=== PATIENT | male | born 1990 | race Caucasian/White ===

== ENCOUNTER 2017-11-30 21:31 | Emergency (ER) | payer OTHER ==
[~2017-11-30] VITALS: Ht 177.8 cm; Wt 77.1 kg
[2017-11-30 21:31] VITALS: BP 142/75
[2017-11-30] MEDS ORDERED: ACETAMINOPHEN 325 MG TABLET PO ONE (22:30)
[2017-11-30] MEDS ORDERED: CEFTRIAXONE 1 G VIAL IM ONE (22:30)
[2017-11-30] MEDS ORDERED: CEFTRIAXONE 1 G VIAL ONE (22:31)
[2017-11-30] MEDS ORDERED: ACETAMINOPHEN ES 500 MG TABLET ONE (22:31)
[2017-11-30] MEDS ORDERED: LIDOCAINE /MPF 1% VIAL 5 ML VIAL ONE (22:31)
== END 2017-11-30 22:59 | disposition home or self-care (01) ==
LOC: ER 21:31
DX: L03.116 Cellulitis of left lower limb (principal)
CPT/HCPCS: 96372; 99283; A4606; J0696; J3490; Z7610

== ENCOUNTER 2019-05-06 21:45 | Emergency (ER) | payer OTHER ==
[~2019-05-06] VITALS: Ht 180.3 cm; Wt 77.1 kg
--- NOTE | 2019-05-06 22:06 | NUR ---
CALLED PT IN WAITING ROOM. NO RESPONSE.
[2019-05-06 22:34] VITALS: BP 142/95
--- NOTE | 2019-05-06 22:57 | NUR ---
RADIOLOGY AT BEDSIDE FOR XRAY
[2019-05-06] MEDS ORDERED: IBUPROFEN 400 MG TABLET PO ONE (23:00)
[2019-05-06] MEDS ORDERED: predniSONE 50 MG TABLET PO ONE (23:00)
[2019-05-06] MEDS ORDERED: ALBUTEROL SULFATE 8 GM HFA.AER.AD IH ONE (23:00)
[2019-05-06] MEDS ORDERED: predniSONE 10 MG TABLET ONE (23:18)
[2019-05-06] MEDS ORDERED: IBUPROFEN 400 MG TABLET ONE (23:18)
[2019-05-06] MEDS ORDERED: predniSONE 20 MG TABLET ONE (23:18)
--- NOTE | 2019-05-06 23:26 | NUR ---
RT CALLED FOR BREATHING TREATMENT.
--- NOTE | 2019-05-07 00:24 | NUR ---
Patient discharged to home in stable condition. Written and verbal after care instructions given. Patient verbalizes understanding of instruction.
== END 2019-05-07 03:23 | disposition home or self-care (01) ==
LOC: ER 21:49
DX: J40 Bronchitis, not specified as acute or chronic (principal)
CPT/HCPCS: 71045; 99283; J7512 ×2

== ENCOUNTER 2020-01-31 19:18 | Emergency (ER) | payer OTHER ==
[2020-01-31] MEDS ORDERED: ACETAMINOPHEN ES 500 MG TABLET ONE (20:11)
[2020-01-31] MEDS ORDERED: ACETAMINOPHEN 325 MG TABLET PO ONE (20:30)
[2020-01-31] MEDS ORDERED: IV NS 0.9% 1,000 ML BAG IV ONE (20:30)
== END 2020-01-31 21:49 | disposition home or self-care (01) ==
DX: J18.9 Pneumonia, unspecified organism (principal); J90 Pleural effusion, not elsewhere classified; Z20.828 Contact with and (suspected) exposure to other viral communicable diseases
CPT/HCPCS: 71045; 96360; 99284; C9803; J7030; U0003